=== PATIENT | female | born 1945 | race Caucasian/White ===

== ENCOUNTER 2018-10-18 10:28 | Emergency (ER) | payer MEDICARE, BC ==
[2018-10-18 10:54] VITALS: BP 163/83
--- NOTE | 2018-10-18 14:02 | UC ---
Respiratory Complaint HPI - HPI Summary HPI Summary: 73 y/o female presents to the urgent care c/o sore throat, nasal congestion, productive cough w/ yellowish phlegm, wore at night time for the past week. Symptoms have worsen for the past 4 days w/ body aches, mild LOZANO. Pt had the influenza vaccine about 2 weeks ago. Pt states she has developed similar symptoms in the past and she end up with bronchitis if not treated soon. Pt states mild wheezing since yesterday. PMHX of DM type II, but has never had asthma and has never smoked in the past. Pt had low grade fever at home the first day of symptoms. Pt denies SOB, chest pain, abdominal pain , N/V/D. - History of Current Complaint Chief Complaint: UCRespiratory Stated Complaint: COLD COUGH EAR ACHE Time Seen by Provider: 10/18/18 13:28 Hx Obtained From: Patient Onset/Duration: Gradual Onset, Lasting Weeks - 1 week, Still Present, Worse Since - 2 days Timing: Intermittent Episodes Severity Initially: Mild Severity Currently: Moderate Pain Intensity: 7 - body aches Pain Scale Used: 0-10 Numeric Character: Cough: Productive, Sputum Description: - yellowish Associated Signs And Symptoms: Positive: Fever - low grade fever at home, Chills , Wheezing, URI, Nasal Congestion, Sinus Discomfort - Risk Factors Pulmonary Embolism Risk Factors: Negative Cardiac Risk Factors: Negative Pseudomonas Risk Factors: Negative Tuberculosis Risk Factors: Negative - Allergies/Home Medications Allergies/Adverse Reactions: Allergies Allergy/AdvReac Type Severity Reaction Status Date / Time codeine Allergy GI Upset Verified 10/18/18 10:55 PMH/Surg Hx/FS Hx/Imm Hx Previously Healthy: Yes Endocrine History: Diabetes - Surgical History Surgical History: Yes Surgery Procedure, Year, and Place: RECTAL ABCESS 10/2014 Dr. Will;. BILATERAL HAND SURGERIES FOR BONE SPURS ;. TONSILLECTOMY;. FOOT FB (SPLINTER) SURGERICALLY REMOVED; - Family History Known Family History: Positive: Diabetes - Social History Occupation: Retired Lives: With Family Alcohol Use: Weekly Alcohol Amount: 2 glasses wine per week Substance Use Type: None Smoking Status (MU): Never Smoked Tobacco Review of Systems All Other Systems Reviewed And Are Negative: Yes Constitutional: Positive: Fever - low grade fever at home, Chills, Other - body aches Eyes: Positive: Negative ENT: Positive: Sore Throat, Nasal Discharge - yellowish, Sinus Congestion, Sinus Pain/Tenderness Respiratory: Positive: Cough - productive w/ yellowish phlegm, Other - wheezing Cardiovascular: Positive: Negative Gastrointestinal: Positive: Negative Genitourinary: Positive: Negative Motor: Positive: Negative Neurovascular: Positive: Negative Musculoskeletal: Positive: Myalgia Neurological: Positive: Headache Psychological: Positive: Negative Is Patient Immunocompromised?: No Physical Exam - Summary Physical Exam Summary: Vital Signs Reviewed: Yes General: well developed, well nourished female sitting in the examining table w/ o any apparent distress Eyes: Positive: Conjunctiva Clear - PERRLA, EOMI, fundi grossly normal ENT: Positive: Normal ENT inspection, Hearing grossly normal, Pharynx normal, Nasal congestion - edematous and erythematous nasal mucosa, Nasal drainage - yellowish drainage, TMs normal. Negative: Tonsillar swelling, Tonsillar exudate Neck: Positive: Supple, Nontender, No Lymphadenopathy Respiratory: no orthopnea or dyspnea. Able to speak in full sentences, no retractions or accessory muscle use, no tripod position, stridor, or head bobbing. Positive breath sounds bilaterally. diffuse scattered wheezing and rhonchi on b/L lungs, no crackles or rales. Cardiovascular: Positive: RRR, No Murmur, Pulses Normal, Brisk Capillary Refill Abdomen Description: Positive: Nontender, No Organomegaly, Soft. Negative: CVA Tenderness (R), CVA Tenderness (L) Bowel Sounds: Positive: Present Musculoskeletal Exam: Normal Musculoskeletal: Positive: Strength Intact, ROM Intact, No Edema Neurological Exam: Normal Psychological Exam: Normal Skin Exam: Normal Triage Information Reviewed: Yes Vital Signs: Initial Vital Signs Temp 99.1 F 10/18/18 10:51 Pulse 110 10/18/18 10:51 Resp 20 10/18/18 10:51 BP 163/83 10/18/18 10:51 Pulse Ox 98 10/18/18 10:51 UC Diagnostic Evaluation - Laboratory O2 Sat by Pulse Oximetry: 98 Respiratory Course/Dx - Course Course Of Treatment: 73 y/o female presents to the urgent care c/o sore throat, nasal congestion, productive cough w/ yellowish phlegm, wore at night time for the past week. Symptoms have worsen for the past 4 days w/ body aches, mild LOZANO. Pt had the influenza vaccine about 2 weeks ago. Pt states she has developed similar symptoms in the past and she end up with bronchitis if not treated soon. Pt states mild wheezing since yesterday. PMHX of DM type II, but has never had asthma and has never smoked in the past. Pt had low grade fever at home the first day of symptoms. Pt denies SOB, chest pain, abdominal pain , N/V/ D. Hx obtained. Pt w/ B/L lungs w/ scattered wheezing and rhonchi on examination. O2Sat:98% and HR:110 and afebrile. Pt is hemodynamically stable. Rapid strep:negative, Rapid Influenza A & B: negative. Chest X-ray ordered: No acute cardiopulmonary disease observed. Pt given and albuterol Treatment to alleviate symptoms. Pt tolerated well treatment and lungs improved,and wheezing resolved. Patient prescribed Doxycycline PO, Albuterol inhaler and Tessalon Tabs to alleviate symptoms as directed below. The patient was recommended to increase fluid intake. Take medications as recommended. Pt advised to returned to the clinic or f/u w/ her PCP if symptoms do not improve. Pt's BP is elevated today advised to decrease salt in diet, monitor BP and f/u with PCP for further management. All D/C instructions explained. Patient understood and agree w/ plan of care. Pt left clinic hemodynamically stable , A&OX3 - Differential Dx/Diagnosis Differential Diagnosis/HQI/PQRI: Asthma, Bronchitis, Exacerbation Of COPD, Influenza, Lower Resp Infection, Sinusitis, Other - pneumonia Provider Diagnosis: Acute bronchitis, Wheezing, Elevated BP without diagnosis of hypertension Discharge - Sign-Out/Discharge Documenting (check all that apply): Patient Departure - D/C home All imaging exams completed and their final reports reviewed: Yes - Discharge Plan Condition: Stable Disposition: HOME Prescriptions: Albuterol HFA INHALER* [Ventolin HFA Inhaler*] 1 - 2 puff INH Q6H PRN #1 mdi PRN Reason: Wheezing Benzonatate CAP* [Tessalon 100 MG CAP*] 100 mg PO TID PRN #21 cap PRN Reason: Cough DOXYcycline CAP(*) [DOXYcycline 100MG CAP(*)] 100 mg PO BID #14 cap Fluconazole 150 MG TAB* [Diflucan 150 MG TAB*] 150 mg PO ED ONCE #1 tablet Patient Education Materials: Acute Bronchitis (ED), Wheezing (ED) Referrals: Sherrie Rose MD [Primary Care Provider] - 2 Days Additional Instructions: 1-Please take full course of antibiotic to avoid resistance. Take yogurt with probiotics or culturelle to protect your GI system 2-Take Tessalon PO tabs as directed and use the albuterol inhaler to alleviate cough. Increase fluid intake, rest and eat well. 3- If symptoms do not improve or worsen or your develop SOB with fever and severe wheezing please go immediately to the ER further evaluation and treatment. 4- F/u with your PCP in 2-3 days if not improvement of symptoms for further management . 5-Your BP is elevated today. Please take your BP medications and decrease salt in your diet, monitor BP and if it continues to be elevated please f/u with your PCP for further management. If you develop chest pain, dizziness, visual disturbances, SOB, or severe LOZANO please go immediately to the ER for further management - Billing Disposition and Condition Condition: STABLE Disposition: Home
[2018-10-18] MEDS ORDERED: Albuterol/Ipratropium NEB.SOL* Albuterol 2.5 MG/Ipratropium 0.5 MG 3 ML INH ONE (14:13)
[2018-10-18 14:40] LABS: Influenza A Molecular NEGATIVE (Negative); Influenza B Molecular NEGATIVE (Negative)
== END 2018-10-18 15:10 | disposition home or self-care (01) ==
LOC: UCEAST 10:28
DX: J20.9 Acute bronchitis, unspecified (principal); R03.0 Elevated blood-pressure reading, without diagnosis of hypertension; Z88.5 Allergy status to narcotic agent
CPT/HCPCS: 71046; 87651; 99212; A9270-GY; G0463

== ENCOUNTER 2018-12-31 07:04 | Emergency (ER) | payer BC, MEDICARE ==
[2018-12-31] MEDS ORDERED: Acetaminophen TAB* 325 MG PO ONE (07:21)
--- NOTE | 2018-12-31 07:30 | ED ---
Lower Extremity - HPI Summary HPI Summary: 73-year-old female presents with complaint of pain behind her left knee for the last 3 days. She states that this began after developing a cold on Sunday where she has had cough, congestion and runny nose. She's had mild sore throat as well. She has not had any fevers associated with this but feels that laying around may have exacerbated her arthritis and pain in her knee. She was noted to have hypertension on arrival at triage but she states she did not take her blood pressure medicine last night. She didn't take them this morning. She denies any injury to the knee and has no personal history of blood clots and is not on any current anticoagulation. - History of Current Complaint Chief Complaint: EDExtremityLower Stated Complaint: "SWOLLEN/BACK OF KNEE PAIN" PER PT Time Seen by Provider: 12/31/18 07:14 Hx Obtained From: Patient Pain Intensity: 8 - Allergies/Home Medications Allergies/Adverse Reactions: Allergies Allergy/AdvReac Type Severity Reaction Status Date / Time codeine AdvReac GI Upset Verified 12/31/18 07:10 PMH/Surg Hx/FS Hx/Imm Hx Previously Healthy: No Endocrine/Hematology History: Reports: Hx Diabetes - po meds, Hx Thyroid Disease Denies: Hx Anemia Cardiovascular History: Reports: Hx Hypertension - CONTOLLED WITH MEDS Denies: Hx Congestive Heart Failure, Hx Pacemaker/ICD, Other Cardiovascular Problems/Disorders Respiratory History: Denies: Hx Asthma, Hx Chronic Obstructive Pulmonary Disease (COPD) GI History: Denies: Hx Jaundice History: Denies: Hx Renal Disease Musculoskeletal History: Reports: Hx Arthritis Sensory History: Denies: Hx Hearing Aid Psychiatric History: Denies: Hx Panic Disorder - Surgical History Surgery Procedure, Year, and Place: RECTAL ABCESS 10/2014 Dr. Will;. BILATERAL HAND SURGERIES FOR BONE SPURS ;. TONSILLECTOMY;. FOOT FB (SPLINTER) SURGERICALLY REMOVED; Infectious Disease History: No Infectious Disease History: Denies: Traveled Outside the [place] in Last 30 Days - Family History Known Family History: Positive: Diabetes - Social History Occupation: Retired Lives: With Family Alcohol Use: Weekly Alcohol Amount: 2 glasses wine per week Substance Use Type: Reports: None Smoking Status (MU): Never Smoked Tobacco Review of Systems Negative: Fever, Chills Positive: Sore Throat, Nasal Discharge Positive: Cough. Negative: Shortness Of Breath Negative: Abdominal Pain Positive: Arthralgia, Edema Negative: Rash, Bruising All Other Systems Reviewed And Are Negative: Yes Physical Exam Triage Information Reviewed: Yes Vital Signs On Initial Exam: Initial Vitals Temp Pulse Resp BP Pulse Ox 98.3 F 97 20 173/119 96 12/31/18 07:07 12/31/18 07:07 12/31/18 07:07 12/31/18 07:07 12/31/18 07:07 Vital Signs Reviewed: Yes Appearance: Positive: Well-Appearing, No Pain Distress Skin: Positive: Warm, Skin Color Reflects Adequate Perfusion, Dry Head/Face: Positive: Normal Head/Face Inspection Eyes: Positive: Normal ENT: Positive: Pharynx normal, Nasal congestion, Nasal drainage, TMs normal Neck: Positive: Supple, Nontender Respiratory/Lung Sounds: Positive: Clear to Auscultation Cardiovascular: Positive: RRR Abdomen Description: Positive: Nontender Musculoskeletal: Positive: Strength/ROM Intact, Other - Fullness behind L knee. No swelling, warmth or erythema. Negative: Edema Left, Edema Right Neurological: Positive: Sensory/Motor Intact, Alert, Oriented to Person Place, Time Psychiatric: Positive: Normal Diagnostics - Vital Signs Vital Signs Temp Pulse Resp BP Pulse Ox 12/31/18 07:07 98.3 F 97 20 173/119 96 - Laboratory Lab Statement: Any lab studies that have been ordered have been reviewed, and results considered in the medical decision making process. - Radiology DVT scan LLE Radiology Interpretation Completed By: Radiologist - No DVT, calcified vessels. Lower Extremity Course/Dx - Course Course Of Treatment: Nurse's notes reviewed. Patient was hypertensive on arrival but her blood pressure medicines most of started to work and the blood pressure has been normalizing. Her DVT scan is negative. She has known osteoarthritis in the knee. Her exam of the leg is otherwise normal. She has no symptoms of claudication with walking. She'll be discharged on Mobic as she has normal renal function. She'll follow-up with Dr. Reveles from orthopedics who is her surgeon. - Diagnoses Differential Diagnosis/HQI/PQRI: Positive: Contusion, DVT, Gout, Infection, Sprain, Strain, Other - Villarreal's cyst Provider Diagnoses: Left knee pain, Osteoarthritis of left knee Discharge - Sign-Out/Discharge Documenting (check all that apply): Patient Departure Patient Received Moderate/Deep Sedation with Procedure: No - Discharge Plan Condition: Improved Disposition: HOME Prescriptions: Meloxicam(NF) [Mobic(NF)] 7.5 mg PO DAILY #30 tab Patient Education Materials: Osteoarthritis (ED) Referrals: Mumtaz Reveles MD [Medical Doctor] - Sherrie Rose MD [Primary Care Provider] - Additional Instructions: Genaro wrap for comfort, ice at rest. Return with fever, swelling, worse, new symptoms or other concerns. Always take your blood pressure as prescribed. Call your orthopedist today to schedule prompt follow-up. - Billing Disposition and Condition Condition: IMPROVED Disposition: Home - Attestation Statements Document Initiated by Michelle: No
[2018-12-31 08:39] VITALS: BP 165/93
== END 2018-12-31 08:39 | disposition home or self-care (01) ==
LOC: ED 07:04
DX: M17.12 Unilateral primary osteoarthritis, left knee (principal); E11.9 Type 2 diabetes mellitus without complications; I10 Essential (primary) hypertension; E07.9 Disorder of thyroid, unspecified
CPT/HCPCS: 99283; A9270-GY

== ENCOUNTER 2020-08-17 04:15 | Inpatient (IN) ==
[2020-08-17] MEDS ORDERED: Dextrose 50% Syringe 50 ml 25 GM/50 ML SYRINGE IV PUSH PRN (05:39)
[2020-08-17] MEDS ORDERED: Al Hydrox/Mg Hydrox/Simet LIQ 30 ML UDC PO PRN (06:08)
[2020-08-17] MEDS ORDERED: Ondansetron 4 mg VIAL 2 MG/ML 2 ml VIAL IV PRN (06:08)
[2020-08-17] MEDS ORDERED: NS 0.9% 1000 ml BAG 1,000 ML IV SCH (06:15)
[2020-08-17] MEDS ORDERED: Al Hydrox/Mg Hydrox/Simet LIQ 30 ML UDC PO ONE (06:28)
[2020-08-17 06:41] LABS: ABS Basophils 0.1 10^3/ul (0-0.2); ABS Eosinophils 0.6 10^3/ul (0-0.6); ABS Lymphocytes 3.1 10^3/ul (1.0-4.8); ABS Monocytes 0.8 10^3/ul (0-0.8); ABS Neutrophils 5.8 10^3/ul (1.5-7.7); Eosinophil % 6.1 %; Hematocrit 39 % (35-47); Hemoglobin 13.3 g/dL (12.0-16.0); Lymphocyte % 29.7 %; Mean Corpuscular HGB Conc 34 g/dL (31-36); Mean Corpuscular Hemoglobin 28 pg (27-31); Mean Corpuscular Volume 83 fL (80-97); Mean Platelet Volume 8.2 fL (7.4-10.4); Nucleated Red Blood Cells % 0.1; Platelet Count 245 10^3/uL (150-450); Red Blood Count 4.69 10^6 /uL (3.70-4.87); Red Cell Distribution Width 14 % (10-15); White Blood Count 10.5 10^3/uL (3.5-10.8)
[2020-08-17 06:45] LABS: INR 1.06 (0.82-1.09)
[2020-08-17 06:58] LABS: Albumin 4.5 g/dL (3.2-5.2); Albumin/Globulin Ratio 1.5 (1-3); BUN/Creatinine Ratio 21.9 (8-20); Calcium 10.6 mg/dL (8.6-10.3); EGFR African American 62.2 (>60); EGFR Non-African American 51.4 (>60); Globulin 3.1 g/dL (2-4); HDL Cholesterol 49.7 mg/dL; Potassium 3.7 mmol/L (3.5-5.0); Total Bilirubin 0.7 mg/dL (0.2-1.0); Total Protein 7.6 g/dL (6.4-8.9); Troponin I 0.01 ng/mL (<0.03)
[2020-08-17 07:36] LABS: Magnesium 1.9 mg/dL (1.9-2.7)
[2020-08-17] MEDS ORDERED: Valsartan/HCTZ 160/25(NF) TAB PO SCH (09:00)
[2020-08-17] MEDS: NS 0.9% 1000 ml BAG 1,000 ML IV SCH ×2 (13:06→23:27)
[2020-08-17] MEDS ORDERED: Enoxaparin 40 MG/0.4 ML SYR SUBCUT SCH (14:00)
[2020-08-17] MEDS ORDERED: Levalbuterol 1.25MG/0.5ML NEB.SOL INH SCH (14:00)
[2020-08-17] MEDS ORDERED: Midazolam 5 mg/5 ml VIAL 1 mg/ml 5 ml VIAL (5 mg) ONE (15:11)
[2020-08-17] MEDS ORDERED: VERAPAMIL 2.5 MG/ML 2 ML VIAL ** 5 mg/2 ml ONE (15:11)
[2020-08-17] MEDS ORDERED: Heparin 1,000 UNIT/ML 10 ml (10,000 UNITS) CATHLAB/DIALYSIS ONE (15:11)
[2020-08-17] MEDS ORDERED: fentaNYL 100 mcg/2 ml 50 MCG/ML VIAL ONE (15:11)
[2020-08-17] MEDS ORDERED: Iohexol 350 (CONTRAST) 200 ML MDV IV ONE (15:12)
[2020-08-17] MEDS ORDERED: Lidocaine 1% VIAL 10 MG/ML VIAL ONE (15:12)
[2020-08-17] MEDS ORDERED: Heparin 2 UNITS/ML 1000 mls 3,000 ML IV ONE (15:12)
[2020-08-17] MEDS ORDERED: nitroGLYCERIN DRIP 25,000 MCG/250 ML BTL ONE (15:12)
[2020-08-17] MEDS ORDERED: Iodixanol 320 (CONTRAST) 100 ML SDV ONE ×4 (15:13→17:12)
[2020-08-17] MEDS ORDERED: Levalbuterol 1.25MG/0.5ML NEB.SOL INH PRN (15:21)
[2020-08-17] MEDS ORDERED: Bivalirudin 250 MG VIAL ONE ×2 (16:04→17:22)
[2020-08-17] MEDS ORDERED: NS 0.9% 500 ml BAG 500 ML IV SCH (18:00)
[2020-08-18 04:44] LABS: Hematocrit 34 % (35-47); Hemoglobin 11.4 g/dL (12.0-16.0); Mean Corpuscular HGB Conc 34 g/dL (31-36); Mean Corpuscular Hemoglobin 28 pg (27-31); Mean Corpuscular Volume 82 fL (80-97); Mean Platelet Volume 8.1 fL (7.4-10.4); Platelet Count 222 10^3/uL (150-450); Red Blood Count 4.09 10^6 /uL (3.70-4.87); Red Cell Distribution Width 14 % (10-15); White Blood Count 8.4 10^3/uL (3.5-10.8)
[2020-08-18 04:55] LABS: BUN/Creatinine Ratio 18.2 (8-20); Calcium 9.2 mg/dL (8.6-10.3); EGFR African American 66.5 (>60); Magnesium 1.7 mg/dL (1.9-2.7); Potassium 3.8 mmol/L (3.5-5.0)
[2020-08-18] MEDS ORDERED: Magnesium Sulfate 2 gm BAG 2 GM/50 ML BAG IVPB ONE (09:50)
[2020-08-18] MEDS ORDERED: Magnesium Sulfate 2 gm BAG 2 GM/50 ML BAG ONE (10:11)
[2020-08-18 11:03] VITALS: BP 124/54
== END 2020-08-18 13:00 | disposition home or self-care (01) | DRG 247 ==
LOC: ED 04:15 → MEDTELE 06:08 → ICU 17:54
PROVIDERS: ADMIT Student in an Organized Health Care Education/Training Program; ATTEND Internal Medicine Critical Care Medicine

== ENCOUNTER 2023-03-27 12:24 | Observation (INO) ==
[2023-03-27 13:19] LABS: ABS Basophils 0.1 10^3/uL (0.0-0.1); ABS Eosinophils 0.1 10^3/uL (0.0-0.5); ABS Lymphocytes 2.1 10^3/uL (1.0-4.8); ABS Monocytes 0.6 10^3/uL (0.0-0.9); ABS Neutrophils 5.5 10^3/uL (1.5-7.6); Eosinophil % 1.5 %; Hematocrit 36.9 % (35-45); Hemoglobin 12.6 g/dL (11.5-14.3); Lymphocyte % 24.9 %; Mean Corpuscular Hemoglobin 29.4 pg (27-33); Mean Corpuscular Hgb Conc 34.2 g/dL (31-36); Mean Platelet Volume 8.1 fL (7.5-11.2); Platelet Count 231 10^3/uL (150-450); Red Blood Count 4.29 10^6/uL (3.63-4.92); Red Cell Distribution Width 13.3 % (12-17); White Blood Count 8.3 10^3/uL (3.8-11.8)
[2023-03-27 13:29] LABS: Albumin 4.2 g/dL (3.2-5.2); Albumin/Globulin Ratio 1.5 (1-3); Calcium 9.8 mg/dL (8.6-10.3); Creatinine, Serum 1.41 mg/dL (0.51-0.95); Globulin 2.8 g/dL (2-4); HDL Cholesterol 40.9 mg/dL; Potassium 3.8 mmol/L (3.5-5.0); Total Bilirubin 0.6 mg/dL (0.2-1.0); eGFR CKD-EPI 38.9 (>60)
[2023-03-27 13:32] LABS: INR 1.05 (0.88-1.18)
[2023-03-27] MEDS ORDERED: Iodixanol (CONTRAST) 320 MG/ML 100 ML SDV IV ONE (13:44)
[2023-03-27] MEDS ORDERED: Labetalol IV 5 MG/ML 20 ml VIAL IV PUSH ONE ×2 (14:13→15:02)
[2023-03-27] MEDS ORDERED: NS 0.9% 1000 ml BAG 1,000 ML IV ONE (14:50)
[2023-03-27] MEDS ORDERED: Enoxaparin 30 MG/0.3 ML SYR SUBCUT SCH (17:00)
[2023-03-27] MEDS ORDERED: Dextrose 50% Syringe 50 ml 25 GM/50 ML SYRINGE IV PUSH PRN (17:41)
[2023-03-27 20:05] LABS: Urine Appearance Cloudy; Urine Bilirubin Negative (Negative); Urine Blood Negative (Negative); Urine Color Yellow; Urine Glucose Negative (Negative); Urine Ketones 1+ (Negative); Urine Nitrite Negative (Negative); Urine Protein 2+(100 mg/dL) (Negative); Urine Specific Gravity 1.044 (1.002-1.030); Urine Urobilinogen Negative (Negative)
[2023-03-27 20:18] LABS: Urine Bacteria 1+ (Absent); Urine Red Blood Cell 2+(6-10/hpf) (Absent); Urine Squamous Epithelial Cell Present (Absent); Urine White Blood Cell 2+(11-20/hpf) (Absent)
[2023-03-28 05:49] LABS: Hematocrit 33.1 % (35-45); Hemoglobin 11.7 g/dL (11.5-14.3); Mean Corpuscular Hemoglobin 29.3 pg (27-33); Mean Corpuscular Hgb Conc 35.2 g/dL (31-36); Mean Corpuscular Volume 83.1 fL (80-97); Mean Platelet Volume 7.8 fL (7.5-11.2); Platelet Count 203 10^3/uL (150-450); Red Blood Count 3.99 10^6/uL (3.63-4.92); Red Cell Distribution Width 13.4 % (12-17); White Blood Count 7.4 10^3/uL (3.8-11.8)
[2023-03-28 06:05] LABS: Calcium 9.2 mg/dL (8.6-10.3); Creatinine, Serum 1.06 mg/dL (0.51-0.95); Potassium 3.6 mmol/L (3.5-5.0); eGFR CKD-EPI 54.8 (>60)
[2023-03-28] MEDS: Enoxaparin 30 MG/0.3 ML SYR SUBCUT SCH (09:54)
[2023-03-28] MEDS ORDERED: Labetalol IV 5 MG/ML 20 ml VIAL IV PUSH PRN (10:38)
[2023-03-28 18:31] LABS: % Iron Saturation 15 % (15-55); .Transferrin 215 mg/dL (203-362); Iron 45 ug/dL (50-212); Total Iron Binding Capacity 301 mcg/dL (250-450); Unsaturated Iron Binding 256 ug/dL
[2023-03-28 18:54] LABS: Ferritin 18.8 ng/mL (11-307)
[2023-03-28 18:56] LABS: Folate > 20.00 ng/mL (5.90-24.80)
[2023-03-28 18:57] LABS: Vitamin B12 > 1450 pg/mL (180-914)
[2023-03-29 05:27] LABS: Hematocrit 33.1 % (35-45); Hemoglobin 11.5 g/dL (11.5-14.3); Mean Corpuscular Hemoglobin 29.4 pg (27-33); Mean Corpuscular Hgb Conc 34.6 g/dL (31-36); Mean Corpuscular Volume 84.9 fL (80-97); Mean Platelet Volume 7.7 fL (7.5-11.2); Platelet Count 213 10^3/uL (150-450); Red Cell Distribution Width 13.7 % (12-17); White Blood Count 7.6 10^3/uL (3.8-11.8)
[2023-03-29 05:45] LABS: Calcium 9.5 mg/dL (8.6-10.3); Creatinine, Serum 1.02 mg/dL (0.51-0.95); Potassium 3.9 mmol/L (3.5-5.0); eGFR CKD-EPI 57.4 (>60)
[2023-03-29] MEDS: Enoxaparin 30 MG/0.3 ML SYR SUBCUT SCH (08:49)
[2023-03-29 14:57] VITALS: BP 172/81
== END 2023-03-29 15:10 | disposition home or self-care (01) ==
LOC: ED 12:24 → EDHOLD 12:24 → SUATTDRO 15:58 → MEDTELE 03-28 16:15
PROVIDERS: ADMIT Internal Medicine; ATTEND Internal Medicine